=== PATIENT | female | born 1970 | race Caucasian/White ===

== ENCOUNTER → 2020-07-23 | Outpatient (CLI) | payer OTHER ==
--- NOTE | 2020-07-23 17:44 | Diagnostic Imaging Report ---
PROCEDURE: US Non-ob pelvis comp/trans. TECHNIQUE: Multiple realtime grayscale images were obtained of the pelvis in various projections endovaginally. Transabdominal imaging was also performed. INDICATION: Abnormal uterine bleeding There are no prior studies available for comparison. The uterus is not enlarged measuring 9.7 x 4.5 cm. The uterine texture is heterogeneous but there is no focal mass to suggest a fibroid. The endometrial lining is thickened measuring 10 mm (normal 5 mm or less). This finding is nonspecific however. Correlation with patient's menstrual cycle would be recommended. Both ovaries were identified. There is a 5.4 x 3.1 x 3.5 cm septated hypoechoic area in the right adnexa. I suspect that this is a cyst arising from the right ovary. This cyst may contain a few internal echoes suggesting it is slightly complicated by infection and/or hemorrhage. The left ovary was unremarkable. There is no solid pelvic mass or free fluid collection evident. IMPRESSION: 1. There is a 5.4 x 3.1 by 3.5 cm septated slightly complicated cyst associated with the right ovary. 2. There is no acute pelvic abnormality identified otherwise. Dictated by: Dictated on workstation # [id number]
--- NOTE | 2020-07-26 09:16 | Diagnostic Imaging Report ---
Indication: Routine screening No prior mammograms are available for comparison. 2-D and 3-D bilateral screening mammography was performed with CAD. Scattered fibroglandular densities are identified bilaterally. There is a nodular density in the lower slightly outer left breast posterior depth. Additional views are recommended. No other suspicious density or malignant appearing microcalcifications are seen. There are benign calcifications. Axillae are unremarkable. IMPRESSION: BI-RADS Category 0 Left breast density. Additional views are recommended for further evaluation. ACR BI-RADS Category 0: Incomplete. (Needs additional imaging evaluation). Result letter will be mailed to the patient. Note: At least 10% of breast cancer is not imaged by mammography. Dictated by: Dictated on workstation # [id number]
== END ==
LOC: RAD 15:00
PROVIDERS: ATTEND Obstetrics & Gynecology
DX: Z12.31 Encounter for screening mammogram for malignant neoplasm of breast (principal); N83.201 Unspecified ovarian cyst, right side
CPT/HCPCS: 76830; 76856; 77063; 77067

== ENCOUNTER 2020-07-29 07:03 | Outpatient (CLI) | payer OTHER ==
[~2020-07-29] VITALS: Ht 175.3 cm; Wt 96.8 kg
[2020-07-30] MEDS ORDERED: IBUP-1773 PO (09:58)
== END 2020-07-29 09:51 | disposition home or self-care (01) ==
LOC: PREOP 07:03
PROVIDERS: ATTEND Obstetrics & Gynecology
DX: Z01.818 Encounter for other preprocedural examination (principal)

== ENCOUNTER → 2020-07-29 | Outpatient (CLI) | payer OTHER ==
[~2020-07-29] MED LIST: IBUP-1773 PO
--- NOTE | 2020-07-29 16:02 | Diagnostic Imaging Report ---
INDICATION: Left breast density. COMPARISON: Correlation is made with the diagnostic mammogram from 07/29/2020 and screening mammogram from 07/23/2020. EXAMINATION: Sonographic interrogation of the lower and outer aspect of the left breast was performed. FINDINGS: There appears to be a probable cluster of cysts at the 5:00 location, 8 cm from the nipple, measuring 10 mm x 4 mm x 8 mm. This likely accounts for the mammographic density. No internal vascularity is present. No posterior acoustic shadowing is seen. There may be slight posterior acoustic enhancement. IMPRESSION: Probable cluster of cysts at the 5:00 location of left breast, 8 cm from the nipple, correlating with the mammographic density. Even so, follow-up left mammogram and left breast ultrasound in six months is recommended to confirm stability. ACR BI-RADS Category 3: Probably benign findings. Result letter will be mailed to the patient. Note: At least 10% of breast cancer is not imaged by mammography. Dictated by: Dictated on workstation # [id number]
--- NOTE | 2020-07-29 16:07 | Diagnostic Imaging Report ---
INDICATION: Left breast density. Patient presents for additional views. CORRELATION is made with screening study from 07/23/2020. Unilateral left 2-D and 3-D diagnostic mammography was performed. This included spot compression CC and ML views as well as conventional 90 degree lateral views. There is persistent density in the lower and outer aspect of the left breast approximately 7 to 8 cm from the nipple. Further evaluation with ultrasound of this area is recommended. IMPRESSION: BI-RADS 0 Persistent density lower outer left breast at mid to posterior depth. Further evaluation with ultrasound is recommended and will be performed today. ACR BI-RADS Category 0: Incomplete. (Needs additional imaging evaluation). Result letter will be mailed to the patient. Note: At least 10% of breast cancer is not imaged by mammography. Dictated by: Dictated on workstation # [id number]
== END ==
LOC: RAD 14:15
PROVIDERS: ATTEND Obstetrics & Gynecology
DX: R92.2 Inconclusive mammogram (principal)
CPT/HCPCS: 76642; 77065; G0279

== ENCOUNTER 2020-07-30 07:49 | Day surgery (SDC) | payer OTHER ==
[~2020-07-30] VITALS: Ht 175.3 cm; Wt 96.8 kg
[2020-07-30] VITALS (10 sets, daily range): BP systolic 110–147; BP diastolic 65–96
[2020-07-30] MEDS ORDERED: MIDAZOLAM 2 MG/2 ML (VERSED) VIAL ONE (08:37)
[2020-07-30] MEDS ORDERED: fentaNYL INJ 100 MCG/2 ML AMP ONE (08:37)
[2020-07-30 08:51] LABS: BASOPHILS % (AUTO) 1 % (0-10); EOSINOPHILS # (AUTO) 0.2 10^3/uL (0.0-0.3); EOSINOPHILS % (AUTO) 2 % (0-10); HEMATOCRIT 46 % (35-52); HEMOGLOBIN 15.3 g/dL (11.5-16.0); LYMPHOCYTES # (AUTO) 1.5 10^3/uL (1.0-4.0); LYMPHOCYTES % (AUTO) 17 % (12-44); MEAN CORPUSCULAR HEMOGLOBIN 29 pg (25-34); MEAN CORPUSCULAR HGB CONC 33 g/dL (32-36); MEAN CORPUSCULAR VOLUME 88 fL (80-99); MEAN PLATELET VOLUME 10.4 fL (9.0-12.2); MONOCYTES # (AUTO) 0.7 10^3/uL (0.0-1.0); MONOCYTES % (AUTO) 9 % (0-12); NEUTROPHILS # (AUTO) 6.2 10^3/uL (1.8-7.8); NEUTROPHILS % (AUTO) 72 % (42-75); PLATELET COUNT 349 10^3/uL (130-400); WHITE BLOOD COUNT 8.6 10^3/uL (4.3-11.0)
[2020-07-30] MEDS ORDERED: BUPIVACAINE 0.25% 30 ML (SENSORCAINE) VIAL ONE (09:13)
[2020-07-30] MEDS ORDERED: SEVOFLURANE (ULTANE) 15 ML INHAL SOLN ONE (09:36)
[2020-07-30] MEDS ORDERED: proPOfol 200 MG/20 ML (DIPRIVAN) VIAL IV ONE (09:36)
[2020-07-30] MEDS ORDERED: LIDOCAINE PF 2% 5 ML (XYLOCAINE) VIAL ONE (09:36)
[2020-07-30] MEDS ORDERED: ONDANSETRON 4 MG/2 ML (SDV) Z0FRAN ONE (09:36)
[2020-07-30] MEDS ORDERED: KETOROLAC 30 MG/ML VIAL ONE (09:50)
--- NOTE | 2020-07-30 09:54 | Progress Note-Pre Operative ---
Pre-Operative Progress Note H&P Reviewed The H&P was reviewed, patient examined and no changes noted. Date Seen by Provider: July 30, 2020 Time Seen by Provider: 09:55 Date H&P Reviewed: July 30, 2020 Time H&P Reviewed: 09:55 Pre-Operative Diagnosis: AUB, Endometrial cells on Pap KRISH JIMENEZ DO July 30, 2020 09:54
[2020-07-30] MEDS ORDERED: IBUP-1773 PO (09:58)
[2020-07-30] MEDS ORDERED: KETOROLAC 30 MG/ML VIAL IVP ONE (10:00)
[2020-07-30] MEDS ORDERED: D5 LR IV SOLUTION 1,000 ML IV SCH (10:00)
[2020-07-30] MEDS ORDERED: HYDROmorphone 2 MG/ML VIAL (DILAUDID) IV ONE (10:00)
[2020-07-30] MEDS ORDERED: ONDANSETRON 4 MG/2 ML (SDV) Z0FRAN IVP PRN ×2 (10:00)
[2020-07-30] MEDS ORDERED: HYDROcodone/APAP 5 MG/325 MG (LORTAB) TAB PO PRN (10:00)
--- NOTE | 2020-07-30 14:51 | OPERATIVE REPORT ---
DATE OF SERVICE: 07/30/2020 PREOPERATIVE DIAGNOSES: A 50-year-old female with abnormal uterine bleeding, endometrial cells on Pap smear and thickened endometrium on ultrasound. POSTOPERATIVE DIAGNOSES: A 50-year-old female with abnormal uterine bleeding, endometrial cells on Pap smear and thickened endometrium on ultrasound. PROCEDURE: D and C. SURGEON: Krish Jimenez DO ANESTHESIA: LMA general. ESTIMATED BLOOD LOSS: Minimal. URINE OUTPUT: 50 mL, clear drained at the start of procedure. FLUIDS: 600 mL lactated Ringer's solution. INTRAOPERATIVE FINDINGS: Normal external female genitalia: Normal vaginal mucosa and cervix. Moderate to copious amount of endometrial curettings collected endometrial tissue. SPECIMEN SENT: Endometrial curettings. INDICATIONS FOR PROCEDURE: This 50-year-old female is the patient who sought care in my office for abnormal uterine bleeding that was heavy and irregular. Her Pap smear revealed endometrial cells. Due to this being greater than 45, I also ordered a pelvic ultrasound, which revealed thickened endometrium on pelvic ultrasound. I discussed with the patient proceeding with endometrial sampling in the form of D and C. Risks of procedure were discussed with the patient in detail and after all of her questions were answered, consent was obtained in the preoperative area. The patient was taken to the operating room. OPERATIVE REPORT IN DETAIL: Once in the operating room, anesthesia was found to be adequate. She was placed in dorsal lithotomy position, prepped and draped in normal sterile fashion. A timeout was performed and the bladder was drained using straight catheterization. Weighted speculum was inserted to the patient's vagina. Right angle retractor was used to visualize the cervix. It was grasped at 12 o'clock position using a long Allis clamp. Paracervical block was then performed at 3 and 9 o'clock positions on the cervix. Care was taken to aspirate for injecting 5 mL of 0.25% Marcaine injected into each site after which I sound the uterine cavity, depth was found to be 8 cm. I then gently dilated the cervix using Hanks dilators to maximum dilatation approximately 1 cm, at which point I performed a gentle curettage using a medium size endometrial curette and a copious amount of endometrial tissue was collected in doing so. I send this tissue as endometrial curettings, after which there was no active bleeding noted from the cervix. All the other instruments were removed from the patient's vagina. The patient tolerated the procedure well and sent to recovery area in stable condition. Lap and sponge counts were correct at the end of the procedure. Instrument count was correct as well. 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
--- NOTE | 2020-08-10 06:26 | Anesthesia-General Post-Op ---
General Significant Intra-Op Events Notes post op completed 07/30 at 1100 Patient Condition Mental Status/LOC: Same as Preop Cardiovascular: Satisfactory Nausea/Vomiting: Absent Respiratory: Satisfactory Pain: Controlled Complications: Absent Post Op Complications Complications None Follow Up Care/Instructions Patient Instructions None needed. Anesthesia/Patient Condition Patient Condition Patient is doing well, no complaints, stable vital signs, no apparent adverse anesthesia problems. No complications reported per nursing. D/C home per [facility] Criteria: Yes CHINO MÉNDEZ CRNA Aug 10, 2020 06:26
== END 2020-07-30 11:42 | disposition home or self-care (01) ==
LOC: SDC 07:49
PROVIDERS: ATTEND Obstetrics & Gynecology
DX: N93.8 Other specified abnormal uterine and vaginal bleeding (principal); R87.619 Unspecified abnormal cytological findings in specimens from cervix uteri; R93.89 Abnormal findings on diagnostic imaging of other specified body structures; K21.9 Gastro-esophageal reflux disease without esophagitis; F17.210 Nicotine dependence, cigarettes, uncomplicated
CPT/HCPCS: 36415; 84703; 85025; 86850; 86900; 86901; 87081

== ENCOUNTER → 2021-01-14 | Outpatient (CLI) | payer OTHER ==
--- NOTE | 2021-01-14 17:22 | Diagnostic Imaging Report ---
INDICATION: Six-month follow-up of left breast cluster of cysts. COMPARISON: Correlation made with diagnostic mammogram earlier today as well as a left breast ultrasound from 07/29/2020. FINDINGS: Sonographic interrogation at the 5:00 location of the left breast, 8 cm from the nipple, again demonstrates a cluster of cysts measuring approximately 10 mm x 4 mm x 8 mm, stable when compared with prior exam. There is also a small cyst at the 5:30 location, 6-8 cm from the nipple, measuring 7 mm x 7 mm x 4 mm. No solid mass is detected. IMPRESSION: Stable left breast ultrasound and stable cluster of cysts at the 5:00 location. Follow-up mammogram and ultrasound in six months is recommended to show continued stability. ACR BI-RADS Category 3: Probably benign findings. Result letter will be mailed to the patient. Note: At least 10% of breast cancer is not imaged by mammography. Dictated by: Dictated on workstation # [id number]
--- NOTE | 2021-01-14 17:27 | Diagnostic Imaging Report ---
INDICATION: Left breast density. Patient presents for six-month follow-up. COMPARISON: Correlation is made with prior mammogram from 07/23/2020. EXAMINATION: Unilateral left 2D and 3D diagnostic mammography was performed with CAD. The current study was also evaluated with a Computer Aided Detection (CAD) system. FINDINGS: Left breast is heterogeneously dense, limiting the sensitivity of mammography. A persistent nodule in the lower outer left breast mid depth is noted, similar to prior exam. No new mass is detected. No malignant-appearing microcalcifications are seen. There are benign calcifications present. Left axilla is unremarkable. IMPRESSION: Stable nodular density in the lower outer left breast mid depth since study six months earlier. Ultrasound of this area is recommended and will be performed today as well. ACR BI-RADS Category 0: Incomplete. (Needs additional imaging evaluation). Result letter will be mailed to the patient. Note: At least 10% of breast cancer is not imaged by mammography. Dictated by: Dictated on workstation # [id number]
== END ==
LOC: RAD 13:55
PROVIDERS: ATTEND Obstetrics & Gynecology
DX: N60.12 Diffuse cystic mastopathy of left breast (principal); N63.23 Unspecified lump in the left breast, lower outer quadrant
CPT/HCPCS: 76642; 77065; G0279

== ENCOUNTER → 2022-05-26 | Outpatient (CLI) | payer BC ==
[2022-05-26 11:37] LABS: HEMATOCRIT 41 % (35-52); HEMOGLOBIN 12.2 g/dL (11.5-16.0); MEAN CORPUSCULAR HEMOGLOBIN 23 pg (25-34); MEAN CORPUSCULAR HGB CONC 30 g/dL (32-36); MEAN CORPUSCULAR VOLUME 75 fL (80-99); MEAN PLATELET VOLUME 9.2 fL (9.0-12.2); PLATELET COUNT 353 10^3/uL (130-400); WHITE BLOOD COUNT 7.5 10^3/uL (4.3-11.0)
--- NOTE | 2022-05-26 13:37 | Diagnostic Imaging Report ---
PROCEDURE: Pelvic comp/transvaginal sonogram. TECHNIQUE: Complete transabdominal and transvaginal pelvic ultrasound was performed. In addition, limited pelvic Doppler was performed. INDICATION: Abnormal uterine bleeding. Uterus is anteverted measuring 7.8 x 4.8 x 6.0 cm. There appears to be a fibroid measuring 2.1 cm in size. Endometrium is 10 mm in thickness. Right ovary measures 5.1 x 3.9 x 4.7 cm and contains a septated cyst measuring 4.4 x 3.3 x 4.2 cm. Left ovary measures 2.9 x 1.9 x 1.9 cm. Both ovaries demonstrate blood flow. There is no free fluid. IMPRESSION: Septated 4.4 cm right ovarian cyst. The study is otherwise unremarkable. Dictated by: Dictated on workstation # [id number]
== END ==
LOC: RAD 12:00
PROVIDERS: ATTEND Nurse Practitioner Women's Health
DX: N83.201 Unspecified ovarian cyst, right side (principal)
CPT/HCPCS: 36415; 76830; 76856; 83001; 85027

== ENCOUNTER 2022-09-19 05:30 | Outpatient (CLI) | payer BC ==
[~2022-09-19] VITALS: Ht 175.3 cm; Wt 96.8 kg
[2022-09-19] MEDS ORDERED: FERR-84 PO (13:40)
[2022-09-19] MEDS ORDERED: ADAL80PE2 SQ (13:40)
[2022-09-19] MEDS ORDERED: ASPI-999 PO (13:40)
== END 2022-09-19 14:08 ==
LOC: PREOP 05:30
PROVIDERS: ATTEND Obstetrics & Gynecology
DX: Z01.818 Encounter for other preprocedural examination (principal); N93.9 Abnormal uterine and vaginal bleeding, unspecified